=== PATIENT | female | born 1995 | race African-American/Black ===

== ENCOUNTER 2024-01-08 19:15 | Inpatient (IN) | payer OTHER ==
[2024-01-08 20:05] VITALS: BMI 24.5
[2024-01-08] MEDS ORDERED: POLYETHYLENE GLYCOL (HEALTHYLAX) 3350 17 GM PACKET PO PRN (21:14)
[2024-01-08] MEDS ORDERED: MAGNESIUM HYDROX 2400MG/30ML ORAL SUSPENSION 30 ML CUP PO PRN (21:14)
[2024-01-08] MEDS ORDERED: ACETAMINOPHEN 325 MG TABLET (FP) PO PRN (21:14)
[2024-01-08] MEDS ORDERED: BENZONATATE 200 MG CAPSULE PO PRN (21:14)
[2024-01-08] MEDS ORDERED: LOPERAMIDE HCL 2 MG CAPSULE PO PRN (21:14)
[2024-01-08] MEDS ORDERED: DICYCLOMINE HCL 10 MG CAPSULE PO PRN (21:14)
[2024-01-08] MEDS ORDERED: NALOXONE HCL (KLOXXADO) 8 MG SPRAY NS PRN (21:14)
[2024-01-08] MEDS ORDERED: BISMUTH SUBSALICYLATE 524 MG/30 ML PO PRN (21:14)
[2024-01-08] MEDS ORDERED: ONDANSETRON *ODT* 4 MG TABLET SL PRN (21:14)
[2024-01-08] MEDS ORDERED: guaiFENesin 600 MG TABLET.ER (FP) PO PRN (21:14)
[2024-01-08] MEDS ORDERED: BENZOCAINE/MENTHOL (CHLORASEPTIC ) LOZENGE MM PRN (21:14)
[2024-01-08] MEDS ORDERED: MAG HYDROX/AL HYDROX/SIMETH 30 ML UNIT-DOSE CUP PO PRN (21:14)
[2024-01-08] MEDS ORDERED: NALOXONE HCL 0.4 MG/ML VIAL IM PRN (21:14)
[2024-01-08] MEDS ORDERED: P-EPHED 60MG/TRIPROLIDI 2.5MG TABLET PO PRN (21:14)
[2024-01-08] MEDS: THIAMINE 100 MG TABLET PO SCH (22:11)
[2024-01-08] MEDS: MELATONIN 5 MG TABLETS PO SCH (22:11)
[2024-01-08] MEDS: hydrOXYzine PAMOATE 25 MG CAPSULE (FP) PO PRN (23:11)
[2024-01-08] MEDS: METHOCARBAMOL 500 MG TABLET PO PRN (23:12)
[2024-01-09] MEDS ORDERED: diazePAM 5 MG TABLET PO PRN (09:49)
[2024-01-09 10:19] LABS: HEMATOCRIT 31.8 % (32.4-45.2); MCH 25.9 pg (25.7-33.7); MCHC 31.6 g/dl (32.0-36.0); MEAN PLT VOLUME 7.2 fl (7.5-11.1); PLATELET COUNT 497 10^3/uL (134-434); RBC 3.88 M/mm3 (3.60-5.2); RDW 21.4 % (11.6-15.6); WHITE BLOOD COUNT 7.6 K/mm3 (4.0-10.0)
[2024-01-09 10:22] LABS: POTASSIUM 3.9 mmol/L (3.5-5.1)
[2024-01-09 10:29] LABS: BLOOD UREA NITROGEN 13.3 mg/dL (7-18); CALCIUM 9.4 mg/dL (8.5-10.1)
[2024-01-09 10:30] LABS: ALBUMIN 3.2 g/dl (3.4-5.0)
[2024-01-09 10:33] LABS: CREATININE 1.1 mg/dL (0.55-1.3)
[2024-01-09 10:35] LABS: BILIRUBIN,TOTAL 0.8 mg/dL (0.2-1); TOT PROT 7.5 g/dl (6.4-8.2)
[2024-01-09] MEDS: PRENATAL VITAMINS W/ FOLIC ACID TABLET (FP) PO SCH (10:37)
[2024-01-09] MEDS: GABAPENTIN 100 MG CAPSULE PO SCH (10:37)
[2024-01-09] MEDS: FLUoxetine HCL 10 MG CAPSULE PO SCH (10:37)
[2024-01-09] MEDS: diazePAM 5 MG TABLET PO SCH ×2 (10:38→18:29)
[2024-01-10 09:21] VITALS: RESP 18; TEMP 97.6
[2024-01-10 13:09] VITALS: BP 117/72; PULSE 89
[2024-01-11] MEDS ORDERED: diazePAM 5 MG TABLET PO SCH (06:00)
[2024-01-12] MEDS ORDERED: diazePAM 5 MG TABLET PO SCH (06:00)
[2024-01-13] MEDS ORDERED: diazePAM 5 MG TABLET PO ONE (06:00)
== END 2024-01-10 13:07 | disposition left against medical advice (07) | DRG 770 ==
LOC: YASAS 19:15 → Y6N 22:14
PROVIDERS: ADMIT Allergy & Immunology; ATTEND Surgery
PROC: HZ2ZZZZ Detoxification Services for Substance Abuse Treatment (ICD-10-PCS; principal; 2024-01-08)
DX: F10.230 Alcohol dependence with withdrawal, uncomplicated (principal); F14.10 Cocaine abuse, uncomplicated; F17.210 Nicotine dependence, cigarettes, uncomplicated; F19.24 Other psychoactive substance dependence with psychoactive substance-induced mood disorder; F32.9 Major depressive disorder, single episode, unspecified; Z56.0 Unemployment, unspecified; Z59.00 Homelessness unspecified
CPT/HCPCS: 36415; 80053; 81025; 85027; 86780; 93005; 93010

== ENCOUNTER 2024-06-01 08:25 | Inpatient (IN) | payer OTHER ==
[2024-06-01 08:59] VITALS: BMI 24.1
[2024-06-01] MEDS ORDERED: guaiFENesin 600 MG TABLET.ER (FP) PO PRN (09:00)
[2024-06-01] MEDS ORDERED: MAG HYDROX/AL HYDROX/SIMETH 30 ML UNIT-DOSE CUP PO PRN (09:00)
[2024-06-01] MEDS ORDERED: LOPERAMIDE HCL 2 MG CAPSULE PO PRN (09:00)
[2024-06-01] MEDS ORDERED: NALOXONE HCL 0.4 MG/ML VIAL IM PRN (09:00)
[2024-06-01] MEDS ORDERED: IBUPROFEN 400 MG TABLET (FP) PO PRN (09:00)
[2024-06-01] MEDS ORDERED: BENZONATATE 200 MG CAPSULE PO PRN (09:00)
[2024-06-01] MEDS ORDERED: chlordiazePOXIDE HCL 25 MG CAPSULE PO PRN (09:00)
[2024-06-01] MEDS ORDERED: BENZOCAINE/MENTHOL (CHLORASEPTIC ) LOZENGE MM PRN (09:00)
[2024-06-01] MEDS ORDERED: POLYETHYLENE GLYCOL (HEALTHYLAX) 3350 17 GM PACKET PO PRN (09:00)
[2024-06-01] MEDS ORDERED: NALOXONE (NARCAN) HCL 4 MG/0.1 ML SPRAY NS PRN (09:00)
[2024-06-01] MEDS ORDERED: DICYCLOMINE HCL 10 MG CAPSULE PO PRN (09:00)
[2024-06-01] MEDS ORDERED: ACETAMINOPHEN 325 MG TABLET (FP) PO PRN (09:00)
[2024-06-01] MEDS ORDERED: BISMUTH SUBSALICYLATE 524 MG/30 ML PO PRN (09:00)
[2024-06-01] MEDS ORDERED: MAGNESIUM HYDROX 2400MG/30ML ORAL SUSPENSION 30 ML CUP PO PRN (09:00)
[2024-06-01] MEDS ORDERED: ONDANSETRON *ODT* 4 MG TABLET SL PRN (09:00)
[2024-06-01] MEDS ORDERED: FLUoxetine HCL 20 MG CAPSULE PO ONE (09:45)
[2024-06-01] MEDS: PRENATAL VITAMINS W/ FOLIC ACID TABLET (FP) PO SCH (09:47)
[2024-06-01] MEDS: chlordiazePOXIDE HCL 25 MG CAPSULE PO SCH (10:57)
[2024-06-01] MEDS: NALTREXONE HCL 50 MG TABLET PO ONE (10:58)
[2024-06-01] MEDS: FLUoxetine HCL 20 MG CAPSULE PO ONE (11:14)
[2024-06-01] MEDS: THIAMINE 100 MG TABLET PO SCH (22:26)
[2024-06-01] MEDS: MELATONIN 5 MG TABLETS PO SCH (22:28)
[2024-06-02] MEDS: NALTREXONE HCL 50 MG TABLET PO SCH (10:33)
[2024-06-02] MEDS: FLUoxetine HCL 20 MG CAPSULE PO SCH (10:33)
[2024-06-02 14:24] LABS: HEMATOCRIT 31.5 % (32.4-45.2); HEMOGLOBIN 9.8 GM/dL (10.7-15.3); MCH 27.9 pg (25.7-33.7); MEAN CELL VOLUME 90.2 fl (80-96); MEAN PLT VOLUME 7.9 fl (7.5-11.1); PLATELET COUNT 369 10^3/uL (134-434); RBC 3.49 M/mm3 (3.60-5.2); WHITE BLOOD COUNT 4.3 K/mm3 (4.0-10.0)
[2024-06-02 14:33] LABS: POTASSIUM 3.9 mmol/L (3.5-5.1)
[2024-06-02 14:52] LABS: ALBUMIN 3.3 g/dl (3.4-5.0); BLOOD UREA NITROGEN 9.1 mg/dL (7-18); CALCIUM 8.8 mg/dL (8.5-10.1)
[2024-06-02 14:55] LABS: CREATININE 0.6 mg/dL (0.55-1.3)
[2024-06-02 14:56] LABS: BILIRUBIN,TOTAL 0.8 mg/dL (0.2-1); TOT PROT 7.1 g/dl (6.4-8.2)
[2024-06-02] MEDS: IBUPROFEN 600 MG TABLET (FP) PO PRN (15:29)
[2024-06-02] MEDS: chlordiazePOXIDE HCL 25 MG CAPSULE PO SCH (17:34)
[2024-06-02] MEDS: hydrOXYzine PAMOATE 25 MG CAPSULE (FP) PO PRN (17:34)
[2024-06-02] MEDS: METHOCARBAMOL 500 MG TABLET PO PRN (22:30)
[2024-06-03] MEDS: chlordiazePOXIDE 5 MG CAPSULE PO SCH (05:32)
[2024-06-04] MEDS ORDERED: chlordiazePOXIDE HCL 10 MG CAPSULE PO PRN
[2024-06-04] MEDS: chlordiazePOXIDE 5 MG CAPSULE PO SCH (05:39)
[2024-06-04] MEDS: hydrOXYzine PAMOATE 25 MG CAPSULE (FP) PO PRN (05:41)
[2024-06-04] MEDS: METHOCARBAMOL 500 MG TABLET PO PRN (10:19)
[2024-06-04 17:06] VITALS: RESP 16
[2024-06-05] MEDS: chlordiazePOXIDE 5 MG CAPSULE PO SCH (05:24)
[2024-06-05 09:11] VITALS: BP 119/66; PULSE 72; TEMP 98
[2024-06-06] MEDS ORDERED: chlordiazePOXIDE HCL 10 MG CAPSULE PO ONE (05:00)
== END 2024-06-05 11:45 | disposition home or self-care (01) | DRG 775 ==
LOC: YASAS 08:25 → Y3N 09:37
PROVIDERS: ADMIT Allergy & Immunology; ATTEND Surgery
PROC: HZ2ZZZZ Detoxification Services for Substance Abuse Treatment (ICD-10-PCS; principal; 2024-06-01)
DX: F10.230 Alcohol dependence with withdrawal, uncomplicated (principal); F17.210 Nicotine dependence, cigarettes, uncomplicated; F32.9 Major depressive disorder, single episode, unspecified; Z56.0 Unemployment, unspecified; Z59.01 Sheltered homelessness
CPT/HCPCS: 36415; 80053; 80305; 80307; 81025; 85027; 86780; 93005; 93010

== ENCOUNTER 2024-06-24 13:08 | Inpatient (IN) | payer OTHER ==
[2024-06-24 13:57] VITALS: BMI 22.6
[2024-06-24] MEDS ORDERED: BISMUTH SUBSALICYLATE 262 MG/15 ML BTL PO PRN (14:53)
[2024-06-24] MEDS ORDERED: BENZOCAINE/MENTHOL (CHLORASEPTIC ) LOZENGE MM PRN (14:53)
[2024-06-24] MEDS ORDERED: BENZONATATE 200 MG CAPSULE PO PRN (14:53)
[2024-06-24] MEDS ORDERED: NALOXONE (NYS OPIOID OVERDOSE PROGRAM) 4 MG/0.1 ML SPRAY NS PRN (14:53)
[2024-06-24] MEDS ORDERED: MAGNESIUM HYDROX 2400MG/30ML ORAL SUSPENSION 30 ML CUP PO PRN (14:53)
[2024-06-24] MEDS ORDERED: guaiFENesin 600 MG TABLET.ER (FP) PO PRN (14:53)
[2024-06-24] MEDS ORDERED: ONDANSETRON *ODT* 4 MG TABLET SL PRN (14:53)
[2024-06-24] MEDS ORDERED: POLYETHYLENE GLYCOL (HEALTHYLAX) 3350 17 GM PACKET PO PRN (14:53)
[2024-06-24] MEDS ORDERED: IBUPROFEN 400 MG TABLET (FP) PO PRN (14:53)
[2024-06-24] MEDS ORDERED: ACETAMINOPHEN 325 MG TABLET (FP) PO PRN (14:53)
[2024-06-24] MEDS ORDERED: NALOXONE (NARCAN) HCL 4 MG/0.1 ML SPRAY NS PRN (14:53)
[2024-06-24] MEDS ORDERED: LORazepam 1 MG TABLET PO PRN (14:53)
[2024-06-24] MEDS ORDERED: MAG HYDROX/AL HYDROX/SIMETH 30 ML UNIT-DOSE CUP PO PRN (14:53)
[2024-06-24] MEDS ORDERED: LOPERAMIDE HCL 2 MG CAPSULE PO PRN (14:53)
[2024-06-24] MEDS ORDERED: DICYCLOMINE HCL 10 MG CAPSULE PO PRN (14:53)
[2024-06-24] MEDS: ACAMPROSATE CALCIUM 333 MG TABLET.DR PO SCH (17:57)
[2024-06-24] MEDS: PRENATAL VITAMINS W/ FOLIC ACID TABLET (FP) PO SCH (17:57)
[2024-06-24] MEDS: LORazepam 2 MG TABLET PO SCH (17:58)
[2024-06-24] MEDS: hydrOXYzine PAMOATE 25 MG CAPSULE (FP) PO PRN (17:58)
[2024-06-24] MEDS: METHOCARBAMOL 500 MG TABLET PO PRN (22:22)
[2024-06-24] MEDS: THIAMINE 100 MG TABLET PO SCH (22:22)
[2024-06-24] MEDS: MELATONIN 5 MG TABLETS PO SCH (22:22)
[2024-06-25] MEDS: NICOTINE 14 MG/24 HOURS TOPICAL PATCH TD SCH (10:30)
[2024-06-25] MEDS: FLUoxetine HCL 20 MG CAPSULE PO SCH (10:56)
[2024-06-25] MEDS: GABAPENTIN 100 MG CAPSULE PO SCH (10:57)
[2024-06-25 11:56] LABS: HEMATOCRIT 26.5 % (32.4-45.2); HEMOGLOBIN 8.3 GM/dL (10.7-15.3); MCH 27.8 pg (25.7-33.7); MCHC 31.5 g/dl (32.0-36.0); MEAN CELL VOLUME 88.5 fl (80-96); MEAN PLT VOLUME 7.4 fl (7.5-11.1); PLATELET COUNT 251 10^3/uL (134-434); RBC 2.99 M/mm3 (3.60-5.2); WHITE BLOOD COUNT 3.7 K/mm3 (4.0-10.0)
[2024-06-25 12:06] LABS: POTASSIUM 3.6 mmol/L (3.5-5.1)
[2024-06-25 12:21] LABS: ALBUMIN 3.1 g/dl (3.4-5.0); BLOOD UREA NITROGEN 11.6 mg/dL (7-18); CALCIUM 9.2 mg/dL (8.5-10.1)
[2024-06-25 12:24] LABS: CREATININE 0.7 mg/dL (0.55-1.3)
[2024-06-25 12:26] LABS: TOT PROT 6.6 g/dl (6.4-8.2)
[2024-06-25 12:27] LABS: BILIRUBIN,TOTAL 1.1 mg/dL (0.2-1)
[2024-06-25] MEDS: MELATONIN 5 MG TABLETS PO SCH (22:05)
[2024-06-26] MEDS: LORazepam 1 MG TABLET PO SCH (05:49)
[2024-06-26] MEDS ORDERED: chlordiazePOXIDE HCL 25 MG CAPSULE PO PRN (11:23)
[2024-06-26] MEDS: chlordiazePOXIDE HCL 25 MG CAPSULE PO SCH (11:43)
[2024-06-26] MEDS ORDERED: PATIENT'S OWN MEDICATION (NON-FORMULARY) (Tranexamic Acid [Tranexamic Acid] 650 MG Tablet) PO SCH (14:00)
[2024-06-26] MEDS: FERROUS SO4 325 MG TABLET (FP) PO SCH (17:27)
[2024-06-27] MEDS ORDERED: LORazepam 0.5 MG TABLET PO PRN
[2024-06-27] MEDS ORDERED: LORazepam 0.5 MG TABLET PO SCH (05:00)
[2024-06-27 07:17] VITALS: RESP 16; TEMP 97.1
[2024-06-27 10:16] VITALS: BP 107/61; PULSE 79
[2024-06-27] MEDS: FERROUS SO4 325 MG TABLET (FP) PO SCH (10:33)
[2024-06-27] MEDS: IBUPROFEN 600 MG TABLET (FP) PO PRN (10:33)
[2024-06-28] MEDS ORDERED: LORazepam 0.5 MG TABLET PO ONE (05:00)
[2024-06-28] MEDS ORDERED: chlordiazePOXIDE HCL 25 MG CAPSULE PO SCH (05:00)
[2024-06-29] MEDS ORDERED: chlordiazePOXIDE HCL 10 MG CAPSULE PO PRN
[2024-06-29] MEDS ORDERED: chlordiazePOXIDE HCL 10 MG CAPSULE PO SCH (05:00)
[2024-06-30] MEDS ORDERED: chlordiazePOXIDE HCL 10 MG CAPSULE PO SCH (05:00)
[2024-07-01] MEDS ORDERED: chlordiazePOXIDE HCL 10 MG CAPSULE PO ONE (05:00)
== END 2024-06-27 11:19 | disposition left against medical advice (07) | DRG 770 ==
LOC: YASAS 13:08 → Y6N 17:03
PROVIDERS: ADMIT Allergy & Immunology; ATTEND Surgery
PROC: HZ2ZZZZ Detoxification Services for Substance Abuse Treatment (ICD-10-PCS; principal; 2024-06-24)
DX: F10.230 Alcohol dependence with withdrawal, uncomplicated (principal); F17.210 Nicotine dependence, cigarettes, uncomplicated; F10.282 Alcohol dependence with alcohol-induced sleep disorder; F10.280 Alcohol dependence with alcohol-induced anxiety disorder; F10.24 Alcohol dependence with alcohol-induced mood disorder; F32.9 Major depressive disorder, single episode, unspecified; F41.9 Anxiety disorder, unspecified; D64.9 Anemia, unspecified; Z56.0 Unemployment, unspecified; Z59.01 Sheltered homelessness
CPT/HCPCS: 36415; 80053; 80305; 80307; 81025; 85027; 86780; 93005; 93010